=== PATIENT | female | born 1980 | race Caucasian/White ===

== ENCOUNTER → 2020-10-01 | Outpatient (CLI) | payer MEDICARE, OTHER ==
[~2020-10-01] MED LIST: ANTIVERT 25MG T25 MG PO; CIPRO500 MG PO; FOLIC ACID 1 MG1 MG PO; KLONOPIN0.5 MG PO; TRILEPTAL300 MG/5 M PO; ZANTAC150 MG PO
== END ==
LOC: KOH-I 08:18
DX: G91.9 Hydrocephalus, unspecified (principal); I62.03 Nontraumatic chronic subdural hemorrhage
CPT/HCPCS: 70450